=== PATIENT | female | born 1990 | race Caucasian/White ===

== ENCOUNTER 2023-10-21 19:51 | Emergency (ER) | payer MEDICAID ==
[2023-10-21] MEDS: Doxycycline 100 MG Cap PO ONE ×2 (21:09→22:18)
[2023-10-21] MEDS: Lidocaine 1% with EPINEPHrine 1:100,000 20 ML MDV INJECT ONE (21:09)
[2023-10-21 21:35] LABS: APPEARANCE,URINE CLOUDY (CLEAR); BILIRUBIN,URINE NEGATIVE (NEGATIVE); COLOR,URINE YELLOW (YELLOW); GLUCOSE,URINE NEGATIVE (NEGATIVE); KETONES,URINE NEGATIVE (NEGATIVE); LEUKOCYTE ESTERASE,URINE SMALL (NEGATIVE); NITRITE,URINE NEGATIVE (NEGATIVE); OCCULT BLOOD,URINE MODERATE (NEGATIVE); PROTEIN,URINE NEGATIVE (NEGATIVE); UROBILINOGEN,URINE 0.2 EU/dL (0.2-1.0)
[2023-10-21 21:40] LABS: RBC,URINE 0-5 (0-5); WBC,URINE 20-30 (0-5)
[2023-10-21 21:41] LABS: EPITHELIAL CELLS,URINE RARE
[2023-10-21 21:42] LABS: AMORPHOUS SEDIMENT,URINE NOT SEEN; BACTERIA,URINE FEW; MUCUS,URINE NOT SEEN
== END 2023-10-21 22:25 | disposition other institution (70) ==
LOC: JP.ED 19:51
DX: T19.2XXA Foreign body in vulva and vagina, initial encounter (principal); L03.112 Cellulitis of left axilla; Z79.899 Other long term (current) drug therapy; Z88.1 Allergy status to other antibiotic agents; Z91.018 Allergy to other foods; Z88.8 Allergy status to other drugs, medicaments and biological substances
CPT/HCPCS: 81001; 87086; 99284; 99285; A9270-GY